=== PATIENT | female | born 1990 | race African-American/Black ===

== ENCOUNTER 2016-06-16 11:37 | Emergency (ER) | payer SELFPAY ==
[2016-06-16 12:27] VITALS: BP 130/72
--- NOTE | 2016-06-16 12:53 | EDM.PDOC ---
ED HPI Trauma - General Chief Complaint: Lower Extremity Injury/Pain Stated Complaint: RT LEG HURTS Time Seen by Provider: 06/16/16 12:06 Source: Reports: Patient History Limitations: Reports: No limitations - History of Present Illness INITIAL COMMENTS - FREE TEXT/NARRATIVE: Presents reporting right knee and leg pain. The patient states that yesterday she slipped on a sheet of ice and fell onto her right lateral leg. Since that time she has had pain along the right lateral leg but particularly with swelling on her lateral knee. No lesion and denies any other injuries. She has been walking on her leg. Allergies/ADRs: Allergies No Known Allergies Allergy (Verified 06/16/16 12:23) Home Medications: Ambulatory Orders . 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 Trauma Exam - Physical Exam Exam: See Below Exam Limited By: No limitations General Appearance: Reports: alert, no apparent distress Head: Reports: atraumatic, normocephalic Ears: Reports: normal external exam Nose: Reports: normal inspection Throat/Mouth: Reports: Normal inspection Neck: Reports: non-tender Respiratory Exam: Reports: no respiratory distress, lungs clear Cardiovascular: Reports: normal peripheral pulses, regular rate, rhythm, no murmur GI/Abdominal: Reports: soft Extremities: Reports: other (Right knee without erythema, calor, crepitus or deformity. She does have mild swelling superiorly. She does have flexion to about 120 then hesitation due to pain) Neurologic: Reports: no motor/sensory deficits, alert, oriented x 3 Skin: Reports: Normal color, Warm/dry Course - Vital Signs Last Recorded V/S: Last Vital Signs Temp 36.6 C 06/16/16 12:23 Pulse 74 06/16/16 12:23 Resp 16 06/16/16 12:23 BP 130/72 06/16/16 12:23 Pulse Ox 95 06/16/16 12:23 - Orders/Labs/Meds Orders: Active Orders 24 hr Category Date Time Status Knee 3V Rt [CR] Stat Exams 06/16/16 12:38 Ordered Departure - Departure Time of Disposition: 13:12 Disposition: Home, Self-Care 01 Condition: good Clinical Impression: Leg injury Qualifiers: Encounter type: initial encounter Laterality: right Qualified Code(s): S89.91XA - Unspecified injury of right lower leg, initial encounter Referrals: PCP,None [Primary Care Provider] - [facility] [Outside] [facility] [Outside] Forms: ED Department Discharge Additional Instructions: 1. Knee sleeve for compression. Ice 20 minutes every 3-4 hours. Tylenol, Ibuprofen or Aleve as needed for pain. Elevate right leg as much as possible 2. Follow up in primary care. - My Orders Last 24 Hours: My Active Orders 06/16/16 12:38 Knee 3V Rt [CR] Stat - Assessment/Plan Last 24 Hours: My Active Orders 06/16/16 12:38 Knee 3V Rt [CR] Stat
[2016-06-16] MEDS ORDERED: Ketorolac 60 MG/2 ML SDV IM ONE (13:12)
--- NOTE | 2016-06-16 13:22 | CR ---
EXAMINATION: Right knee HISTORY: Pain COMPARISON: None TECHNIQUE: 3 views FINDINGS/IMPRESSION: There is no acute osseous abnormality, dislocation, or fracture. Bone mineraliz ation and joint spaces appear normal. No joint effusion or soft tissue swelling.
== END 2016-06-16 13:41 | disposition home or self-care (01) ==
LOC: MW.ED 11:37
DX: S89.91XA Unspecified injury of right lower leg, initial encounter (principal); W01.0XXA Fall on same level from slipping, tripping and stumbling without subsequent striking against object, initial encounter
CPT/HCPCS: 73562-26-RT; 73562-RT; 99282; 99283

== ENCOUNTER 2016-10-11 16:15 | Emergency (ER) | payer SELFPAY ==
--- NOTE | 2016-10-11 17:20 | EDM.PDOC ---
ED HPI GENERAL MEDICAL PROBLEM - General Chief Complaint: Genitourinary Problem Stated Complaint: FEELING LIGHT HEADED Time Seen by Provider: 10/11/16 16:26 Source of Information: Reports: Patient History Limitations: Reports: No Limitations - History of Present Illness INITIAL COMMENTS - FREE TEXT/NARRATIVE: History of present illness: []Patient is concerned she may be . She took 2 home pregnancies which were positive and states she came off control and is sexually active. Her last menstrual period should have been on September 29 but she has not had any bleeding. She denies any belly pain or vaginal bleeding at this time. Patient really wants to confirm because she cannot believe she is . Is a 3-year-old and a 10-year-old currently has had no complications. Review of systems: As per history of present illness and below otherwise all systems reviewed and negative. Past medical history: As per history of present illness and as reviewed below otherwise noncontributory. Surgical history: As per history of present illness and as reviewed below otherwise noncontributory. Social history: No reported history of drug or alcohol abuse. Family history: As per history of present illness and as reviewed below otherwise noncontributory. Physical exam: General: Well developed, well nourished in NAD HEENT: Atraumatic, normocephalic, pupils reactive, negative for conjunctival pallor or scleral icterus, mucous membranes moist, throat clear, neck supple, nontender, trachea midline. Lungs: Clear to auscultation, breath sounds equal bilaterally, chest nontender. Heart: S1S2, regular, negative for clicks, rubs, or JVD. Abdomen: Soft, nondistended, nontender. No pelvic tenderness or suprapubic tenderness. Negative for masses or hepatosplenomegaly. Negative for costovertebral tenderness. Pelvis: Stable nontender. Genitourinary: Deferred. Rectal: Deferred. Extremities: Atraumatic, negative for cords or calf pain. Neurovascular unremarkable. Neuro: Awake, alert, oriented. Cranial nerves II through XII unremarkable. Cerebellum unremarkable. Motor and sensory unremarkable throughout. Exam nonfocal. Diagnostics: []Urine hCG positive UA negative Therapeutics: [] Impression: [] Plan: []Follow-up women's health clinic Definitive disposition and diagnosis as appropriate pending reevaluation and review of above. - Related Data Allergies Allergy/AdvReac Type Severity Reaction Status Date / Time No Known Allergies Allergy Verified 10/11/16 16:47 Home Meds: Home Meds . 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 History: Reports: None Immunologic History: Reports: None - Infectious Disease History Infectious Disease History: Reports: None Social & Family History - Family History Family Medical History: Noncontributory - Tobacco Use Smoking Status *Q: Never Smoker Second Hand Smoke Exposure: No - Caffeine Use Caffeine Use: Reports: None - Recreational Drug Use Recreational Drug Use: No ED ROS GENERAL - Review of Systems Review Of Systems: See Below ED EXAM - Physical Exam Exam: See Below (CHPI) Course - Vital Signs Last Recorded V/S: Last Vital Signs Temp 36.6 C 10/11/16 16:48 Pulse 90 10/11/16 16:48 Resp 18 10/11/16 16:48 BP 129/63 10/11/16 16:48 Pulse Ox 97 10/11/16 16:48 - Orders/Labs/Meds Labs: Laboratory Tests 10/11/16 10/11/16 Range/Units 16:45 16:45 Urine Color YELLOW Urine Appearance CLEAR Urine pH 6.5 (5.0-8.0) Ur Specific [place] 1.010 (1.001-1.035) Urine Protein NEGATIVE (NEGATIVE) mg/dL Urine Glucose (UA) NEGATIVE (NEGATIVE) mg/dL Urine Ketones NEGATIVE (NEGATIVE) mg/dL Urine Occult Blood NEGATIVE (NEGATIVE) Urine Nitrite NEGATIVE (NEGATIVE) Urine Bilirubin NEGATIVE (NEGATIVE) Urine Urobilinogen 0.2 (<2.0) EU/dL Ur Leukocyte Esterase NEGATIVE (NEGATIVE) Urine RBC NONE SEEN (0-2/HPF) Urine WBC 0-2 (0-5/HPF) Ur Epithelial Cells FEW (NONE-FEW) Urine Bacteria FEW (NEGATIVE) Urine HCG, Qual POSITIVE (NEGATIVE) Departure - Departure Time of Disposition: 17:19 Disposition: Home, Self-Care 01 Condition: Good Clinical Impression: - Discharge Information Forms: ED Department Discharge Additional Instructions: The following information is given to patients seen in the emergency department who are being discharged to home. This information is to outline your options for follow-up care. We provide all patients seen in our emergency department with a follow-up referral. The need for follow-up, as well as the timing and circumstances, are variable depending upon the specifics of your emergency department visit. If you don't have a primary care physician on staff, we will provide you with a referral. We always advise you to contact your personal physician following an emergency department visit to inform them of the circumstance of the visit and for follow-up with them and/or the need for any referrals to a consulting specialist. The emergency department will also refer you to a specialist when appropriate. This referral assures that you have the opportunity for follow-up care with a specialist. All of these measure are taken in an effort to provide you with optimal care, which includes your follow-up. Under all circumstances we always encourage you to contact your private physician who remains a resource for coordinating your care. When calling for follow-up care, please make the office aware that this follow-up is from your recent emergency room visit. If for any reason you are refused follow-up, please contact the [facility] Emergency Department at and asked to speak to the emergency department charge nurse. Follow-up with women's health clinic [facility] - [facility] [address] [place] [id number]
[2016-10-11 17:34] VITALS: BP 129/86
== END 2016-10-11 17:31 | disposition home or self-care (01) ==
LOC: MW.ED 16:15
DX: Z32.01 Encounter for pregnancy test, result positive (principal)
CPT/HCPCS: 81001; 81025; 99282; 99284

== ENCOUNTER 2016-11-21 11:53 | Emergency (ER) | payer SELFPAY ==
[2016-11-21] MEDS ORDERED: Sodium Chloride 0.9% 1,000 ML IV ONE (12:12)
[2016-11-21] MEDS ORDERED: Ondansetron 4 MG/2 ML SDV IVPUSH ONE (12:12)
--- NOTE | 2016-11-21 12:18 | EDM.PDOC ---
ED HPI GENERAL MEDICAL PROBLEM - General Chief Complaint: Gastrointestinal Problem Stated Complaint: HEAD ACKE, SORE THORAT Time Seen by Provider: 11/21/16 11:58 Source of Information: Reports: Patient History Limitations: Reports: No Limitations - History of Present Illness INITIAL COMMENTS - FREE TEXT/NARRATIVE: HISTORY AND PHYSICAL: History of present illness: Patient is a 25-year-old female who presents to the emergency room today with complaints of nausea, vomiting, abdominal cramping, sore throat. Patient reports that over the past 4-5 weeks she has had nausea and vomiting with intermittent dysuria. States she sought out care at [facility] and had a workup. Since that time has not seen anyone for her needs. Patient reports over the past couple days she has had a sore throat and intermittent abdominal cramping which she attributes to her vomiting. She denies any vaginal bleeding or discharge. Patient estimates she is approximately 11 weeks . Unsure of last menstrual period. Review of systems: As per history of present illness and below otherwise all systems reviewed and negative. Past medical history: As per history of present illness and as reviewed below otherwise noncontributory. Surgical history: As per history of present illness and as reviewed below otherwise noncontributory. Social history: No reported history of drug or alcohol abuse. Family history: As per history of present illness and as reviewed below otherwise noncontributory. Physical exam: Gen.: Nontoxic appearing 25-year-old female. Able to speak in full sentences without shortness of breath. Alert and oriented HEENT: Atraumatic, normocephalic, pupils reactive, negative for conjunctival pallor or scleral icterus, mucous membranes moist, throat clear, neck supple, nontender, trachea midline. No lymphadenopathy noted. Lungs: Clear to auscultation, breath sounds equal bilaterally, chest nontender. Heart: S1S2, regular rate and rhythm Abdomen: Soft, nondistended, nontender. Negative for masses or hepatosplenomegaly. Negative for costovertebral tenderness. Pelvis: Stable nontender. Genitourinary: Deferred. Rectal: Deferred. Extremities: Atraumatic, negative for cords or calf pain. Neurovascular unremarkable. Neuro: Awake, alert, oriented. Cranial nerves II through XII unremarkable. Cerebellum unremarkable. Motor and sensory unremarkable throughout. Exam nonfocal. Patient received her IV fluids and Zofran reports that she does feel somewhat better. Reviewed her lab results and ultrasound with the patient. Ultrasound shows an intrauterine measuring about 13 weeks. Discussed with patient that she needs to establish care with HOUSING LIAISON for furthering her care. Symptoms are more than likely viral at this time. Recommended that she follow-up in the next 1-2 days. Get plenty of rest and stay hydrated with fluids. Patient voices understanding and is agreeable with plan of care. Denies any further questions at this time. Diagnostics: CBC, CMP, UA, HCT Quant, transvaginal ultrasound Therapeutics: IV fluid and Zofran Impression: Viral Illness Nausea/vomiting with Plan: 1. Zofran ODT as needed for nausea. Please start a vitamin. Get plenty of rest and stay hydrated. To minimize heartburn symptoms, please try small more frequent meals and avoid spicy foods. 2. Establish care with an HOUSING LIAISON either at [facility] or [facility]. 3. Follow-up in the next 1-2 days as we discussed. Return to the ED as needed as discussed Definitive disposition and diagnosis as appropriate pending reevaluation and review of above. 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: Musculoskeletal History: Reports: None Neurological History: Reports: None Psychiatric History: Reports: None Endocrine/Metabolic History: Reports: None Hematologic History: Reports: None Immunologic History: Reports: None Dermatologic History: Reports: None - Infectious Disease History Infectious Disease History: Reports: None Social & Family History - Family History Family Medical History: Noncontributory - Tobacco Use Smoking Status *Q: Never Smoker Second Hand Smoke Exposure: No - Caffeine Use Caffeine Use: Reports: Soda - Recreational Drug Use Recreational Drug Use: No ED ROS GENERAL - Review of Systems Review Of Systems: ROS reveals no pertinent complaints other than HPI. ED EXAM - Physical Exam Exam: See Below (See dictation) Course - Vital Signs Last Recorded V/S: Last Vital Signs Temp 36.1 C 11/21/16 12:03 Pulse 107 H 11/21/16 12:03 Resp 18 11/21/16 12:03 BP 145/73 H 11/21/16 12:03 Pulse Ox 98 11/21/16 12:03 - Orders/Labs/Meds Orders: Active Orders 24 hr Category Date Time Status OB Transvaginal [US] Stat Exams 11/21/16 12:12 Taken CULTURE STREP A CONFIRMATION [RM] Stat Lab 11/21/16 12:35 Results STREP SCRN A RAPID W CULT CONF [RM] Stat Lab 11/21/16 12:35 Results Labs: Laboratory Tests 11/21/16 11/21/16 11/21/16 Range/Units 12:24 12:24 12:24 WBC 8.91 (4.0-11.0) K/uL RBC 3.85 L (4.30-5.90) M/uL Hgb 11.1 L (12.0-16.0) g/dL Hct 33.7 L (36.0-46.0) % MCV 87.5 (80.0-98.0) fL MCH 28.8 (27.0-32.0) pg MCHC 32.9 (31.0-37.0) g/dL RDW Std Deviation 37.4 (28.0-62.0) fl RDW Coeff of Js 12 (11.0-15.0) % Plt Count 232 (150-400) K/uL MPV 9.10 (7.40-12.00) fL Neut % (Auto) 80.4 H (48.0-80.0) % Lymph % (Auto) 14.0 L (16.0-40.0) % [place] % (Auto) 5.1 (0.0-15.0) % Eos % (Auto) 0.4 (0.0-7.0) % Baso % (Auto) 0.1 (0.0-1.5) % Neut # (Auto) 7.2 H (1.4-5.7) K/uL Lymph # (Auto) 1.3 (0.6-2.4) K/uL [place] # (Auto) 0.5 (0.0-0.8) K/uL Eos # (Auto) 0.0 (0.0-0.7) K/uL Baso # (Auto) 0.0 (0.0-0.1) K/uL Nucleated RBC % 0.0 /100WBC Nucleated RBCs # 0 K/uL Sodium 134 L (136-146) mmol/L Potassium 3.7 (3.5-5.1) mmol/L Chloride 105 (98-110) mmol/L Carbon Dioxide 20 L (21-31) mmol/L BUN 7 (6.0-23.0) mg/dL Creatinine 0.6 (0.6-1.5) mg/dL Est Cr Clr Drug Dosing 114.35 mL/min Estimated GFR (MDRD) > 60.0 ml/min Glucose 139 H (60-110) mg/dL Calcium 9.6 (8.8-10.8) mg/dL Total Bilirubin 0.6 (0.1-1.5) mg/dL AST 11 (5-40) IU/L ALT 10 (8-54) IU/L Alkaline Phosphatase 55 (40-150) Total Protein 7.8 (6.0-8.0) g/dL Albumin 3.8 (3.5-5.0) g/dL Globulin 4.0 H (2.0-3.5) g/dL Albumin/Globulin Ratio 1.0 L (1.3-2.8) HCG, Quant mIU/mL Urine Color Urine Appearance Urine pH (5.0-8.0) Ur Specific [place] (1.001-1.035) Urine Protein (NEGATIVE) mg/dL Urine Glucose (UA) (NEGATIVE) mg/dL Urine Ketones (NEGATIVE) mg/dL Urine Occult Blood (NEGATIVE) Urine Nitrite (NEGATIVE) Urine Bilirubin (NEGATIVE) Urine Urobilinogen (<2.0) EU/dL Ur Leukocyte Esterase (NEGATIVE) Urine RBC (0-2/HPF) Urine WBC (0-5/HPF) Ur Epithelial Cells (NONE-FEW) Urine Bacteria (NEGATIVE) Blood Type O POSITIVE 11/21/16 11/21/16 Range/Units 12:24 12:40 WBC (4.0-11.0) K/uL RBC (4.30-5.90) M/uL Hgb (12.0-16.0) g/dL Hct (36.0-46.0) % MCV (80.0-98.0) fL MCH (27.0-32.0) pg MCHC (31.0-37.0) g/dL RDW Std Deviation (28.0-62.0) fl RDW Coeff of Js (11.0-15.0) % Plt Count (150-400) K/uL MPV (7.40-12.00) fL Neut % (Auto) (48.0-80.0) % Lymph % (Auto) (16.0-40.0) % [place] % (Auto) (0.0-15.0) % Eos % (Auto) (0.0-7.0) % Baso % (Auto) (0.0-1.5) % Neut # (Auto) (1.4-5.7) K/uL Lymph # (Auto) (0.6-2.4) K/uL [place] # (Auto) (0.0-0.8) K/uL Eos # (Auto) (0.0-0.7) K/uL Baso # (Auto) (0.0-0.1) K/uL Nucleated RBC % /100WBC Nucleated RBCs # K/uL Sodium (136-146) mmol/L Potassium (3.5-5.1) mmol/L Chloride (98-110) mmol/L Carbon Dioxide (21-31) mmol/L BUN (6.0-23.0) mg/dL Creatinine (0.6-1.5) mg/dL Est Cr Clr Drug Dosing mL/min Estimated GFR (MDRD) ml/min Glucose (60-110) mg/dL Calcium (8.8-10.8) mg/dL Total Bilirubin (0.1-1.5) mg/dL AST (5-40) IU/L ALT (8-54) IU/L Alkaline Phosphatase (40-150) Total Protein (6.0-8.0) g/dL Albumin (3.5-5.0) g/dL Globulin (2.0-3.5) g/dL Albumin/Globulin Ratio (1.3-2.8) HCG, Quant 42672.4 mIU/mL Urine Color YELLOW Urine Appearance CLEAR Urine pH 6.5 (5.0-8.0) Ur Specific [place] 1.015 (1.001-1.035) Urine Protein NEGATIVE (NEGATIVE) mg/dL Urine Glucose (UA) NEGATIVE (NEGATIVE) mg/dL Urine Ketones NEGATIVE (NEGATIVE) mg/dL Urine Occult Blood NEGATIVE (NEGATIVE) Urine Nitrite NEGATIVE (NEGATIVE) Urine Bilirubin NEGATIVE (NEGATIVE) Urine Urobilinogen 0.2 (<2.0) EU/dL Ur Leukocyte Esterase NEGATIVE (NEGATIVE) Urine RBC 0-3 (0-2/HPF) Urine WBC 0-3 (0-5/HPF) Ur Epithelial Cells FEW (NONE-FEW) Urine Bacteria FEW (NEGATIVE) Blood Type Meds: Medications Discontinued Medications Generic Name Dose Route Start Last Admin Trade Name Freq PRN Reason Stop Dose Admin Sodium Chloride 1,000 mls @ 999 mls/hr 11/21/16 12:12 11/21/16 12:30 Normal Saline IV 11/21/16 13:12 999 mls/hr STAT ONE Administration Ondansetron HCl 4 mg 11/21/16 12:12 11/21/16 12:29 Zofran IVPUSH 11/21/16 12:13 4 mg ONETIME ONE Administration Departure - Departure Time of Disposition: 14:04 Disposition: Home, Self-Care 01 Clinical Impression: Viral illness, Nausea/vomiting in - Discharge Information Referrals: PCP,None [Primary Care Provider] - Forms: ED Department Discharge Additional Instructions: My general discharge The following information is given to patients seen in the emergency department who are being discharged to home. This information is to outline your options for follow-up care. We provide all patients seen in our emergency department with a follow-up referral. The need for follow-up, as well as the timing and circumstances, are variable depending upon the specifics of your emergency department visit. If you don't have a primary care physician on staff, we will provide you with a referral. We always advise you to contact your personal physician following an emergency department visit to inform them of the circumstance of the visit and for follow-up with them and/or the need for any referrals to a consulting specialist. The emergency department will also refer you to a specialist when appropriate. This referral assures that you have the opportunity for follow-up care with a specialist. All of these measure are taken in an effort to provide you with optimal care, which includes your follow-up. Under all circumstances we always encourage you to contact your private physician who remains a resource for coordinating your care. When calling for follow-up care, please make the office aware that this follow-up is from your recent emergency room visit. If for any reason you are refused follow-up, please contact the [facility] Emergency Department at and asked to speak to the emergency department charge nurse. [facility] [address] [place] [id number] [facility] Primary [facility] - Women's Health [address] [place] [id number] 1. Zofran ODT as needed for nausea. Restart a vitamin. Get plenty of rest and stay hydrated. To minimize heartburn symptoms, please try small more frequent meals and avoid spicy foods. 2. Establish care with an HOUSING LIAISON either at [facility] or [facility]. 3. Follow-up in the next 1-2 days as we discussed. Return to the ED as needed as discussed - My Orders Last 24 Hours: My Active Orders 11/21/16 12:12 OB Transvaginal [US] Stat 11/21/16 12:35 CULTURE STREP A CONFIRMATION [RM] Stat STREP SCRN A RAPID W CULT CONF [] Stat - Assessment/Plan Last 24 Hours: My Active Orders 11/21/16 12:12 OB Transvaginal [US] Stat 11/21/16 12:35 CULTURE STREP A CONFIRMATION [RM] Stat STREP SCRN A RAPID W CULT CONF [] Stat
[2016-11-21 12:58] LABS: CHLORIDE,CL 105 mmol/L (98-110); SODIUM,NA 134 mmol/L (136-146)
[2016-11-21 14:32] VITALS: BP 128/67
--- NOTE | 2016-11-23 17:26 | US ---
EXAM DATE: 11/21/16 PATIENT'S AGE: 25 Patient: JEISON MERIDA Facility: [place], [place] Site . Site : 1990 Study: US OB Pelvis [id number]/23/2017 1:20:12 PM Ordering Physician: Doctor Gilbert Final Report: HISTORY: with cramping. TECHNIQUE: Transabdominal and transvaginal pelvic ultrasound, obstetric. FINDINGS: There is a living single intrauterine gestation with calculated gestational age based on ultrasound measurements of 13 weeks 4 days. Heart rate 155 beats per minute. - Measurements: Biparietal diameter 2.3 cm 13 weeks, 6 days. Head circumference 8.4 cm 13 weeks 5 days. Abdominal circumference 6.9 cm 13 weeks 4 days. Femur length 1.3 cm 13 weeks, 6 days. - Cervical length is within normal limits. Cervix appears closed. Amniotic fluid volume is subjectively normal. The ovaries are unremarkable. No complications seen. IMPRESSION: 1. Single living intrauterine gestation at 13 weeks, 4 days. 2. No complications. Dictated by Nelson Ontiveros MD @ 11/21/2016 1:46:37 PM Dictated by: Nelson Ontiveros MD @ 11/21/2016 13:46:45 (Electronic Signature) Report Signed by Proxy. JUSTINE
== END 2016-11-21 14:19 | disposition home or self-care (01) ==
LOC: MW.ED 11:53
DX: O21.9 Vomiting of pregnancy, unspecified (principal); B34.9 Viral infection, unspecified; Z3A.13 13 weeks gestation of pregnancy
CPT/HCPCS: 36415; 76817; 80053; 81001; 84702; 85025; 86900; 86901; 87081; 87880; 96361; 96374; 99284; J2405; J7040; 99283

== ENCOUNTER 2016-12-08 21:38 | Emergency (ER) | payer SELFPAY ==
--- NOTE | 2016-12-08 22:40 | EDM.PDOC ---
ED HPI GENERAL MEDICAL PROBLEM - General Chief Complaint: [employer] Problem Stated Complaint: SIDE AND STOMACH PAIN Time Seen by Provider: 12/08/16 22:13 Source of Information: Reports: Patient History Limitations: Reports: No Limitations - History of Present Illness INITIAL COMMENTS - FREE TEXT/NARRATIVE: HISTORY AND PHYSICAL: History of present illness: [26-year-old female to now presents emergency department 16 weeks by prior ultrasound complaining of vaginal spotting and some left- sided crampy abdominal pain. Patient still fevers chills sweats or shaking chills. She has normal bladder habits. She reports some recent loose stool. Pain is not worse with movement. She has very mild vaginal spotting but no vaginal discharge or odor or discomfort otherwise. Patient thinks she is Rh+ but she has not had her blood type evaluated at this hospital previously. She is seen by in the [facility] for care.] Review of systems: As per history of present illness and below otherwise all systems reviewed and negative. Past medical history: As per history of present illness and as reviewed below otherwise noncontributory. Surgical history: As per history of present illness and as reviewed below otherwise noncontributory. Social history: No reported history of drug or alcohol abuse. Family history: As per history of present illness and as reviewed below otherwise noncontributory. Physical exam: Well-appearing 26-year-old female no acute distress no pallor or tachycardia uterine distention consistent with dates. No focal abdominal or pelvic tenderness. No CVA tenderness HEENT: Atraumatic, normocephalic, pupils reactive, negative for conjunctival pallor or scleral icterus, mucous membranes moist, throat clear, neck supple, nontender, trachea midline. Lungs: Clear to auscultation, breath sounds equal bilaterally, chest nontender. Heart: S1S2, regular, negative for clicks, rubs, or JVD. Abdomen: Soft, nondistended, nontender. Negative for masses or hepatosplenomegaly. Negative for costovertebral tenderness. Pelvis: Stable nontender. Genitourinary: Deferred. Rectal: Deferred. Extremities: Atraumatic, negative for cords or calf pain. Neurovascular unremarkable. Neuro: Awake, alert, oriented. Cranial nerves grossly unremarkable. Cerebellum unremarkable. Motor and sensory unremarkable throughout. Exam nonfocal. Diagnostics: OB pelvic ultrasound pending as well as urinalysis type and Rh. Therapeutics: [] Impression: [] Plan: [[16 week gestation with spotting. Ultrasound pending to evaluate current viability. Patient with no discharge of the mild spotting. Rh pending as well as H&H. Will check urine and follow clinically, correlate with radiographic results.]] Ultrasound with positive heart activity no subchorionic hemorrhage or evidence of intrauterine abnormality per computer support technician. Patient stable on multiple reevaluation she is smiling comfortable appearing and ambulating without any apparent discomfort. She is where her hemoglobin was 10+ and follow- up with her doctor for reevaluation and further workup of this anemia and treatment as needed. Patient's blood type was O+. She is aware to follow-up with her doctor in the morning and observe strict pelvic rest. Definitive disposition and diagnosis as appropriate pending reevaluation and review of above. Lower Abdominal Pain Score (Numeric/FACES): 7 - Related Data Allergies Allergy/AdvReac Type Severity Reaction Status Date / Time No Known Allergies Allergy Verified 12/08/16 23:13 Home Meds: Home Meds Pnv No.95/Ferrous Fum/Folic AC [ Multivitamin Tablet] 1 tab PO DAILY [History] Past Medical History - Past Health History Medical/Surgical History: Denies Medical/Surgical History HEENT History: Reports: None Cardiovascular History: Reports: None Respiratory History: Reports: None Gastrointestinal History: Reports: None Genitourinary History: Reports: None [employer] History: Reports: Musculoskeletal History: Reports: None Neurological History: Reports: None Psychiatric History: Reports: None Endocrine/Metabolic History: Reports: None Hematologic History: Reports: None Immunologic History: Reports: None Dermatologic History: Reports: None - Infectious Disease History Infectious Disease History: Reports: None Social & Family History - Family History Family Medical History: Noncontributory - Tobacco Use Smoking Status *Q: Never Smoker Second Hand Smoke Exposure: No - Caffeine Use Caffeine Use: Reports: Soda - Recreational Drug Use Recreational Drug Use: No ED ROS GENERAL - Review of Systems Review Of Systems: See Below (History of present illness) ED EXAM - Physical Exam Exam: See Below (History of present illness) Course - Vital Signs Last Recorded V/S: Last Vital Signs Temp 36.5 C 12/09/16 00:50 Pulse 77 12/09/16 00:50 Resp 18 12/09/16 00:50 BP 125/69 12/09/16 00:50 Pulse Ox 98 12/09/16 00:50 - Orders/Labs/Meds Orders: Active Orders 24 hr Category Date Time Status OB Ltd 1 or More Fetus [US] Stat Exams 12/08/16 22:33 Taken Labs: Laboratory Tests 12/08/16 12/08/16 Range/Units 22:51 22:51 Hgb 10.9 L (12.0-16.0) g/dL Hct 32.9 L (36.0-46.0) % Blood Type O POSITIVE Antibody Screen NEGATIVE Departure - Departure Time of Disposition: 00:34 Disposition: Home, Self-Care 01 Condition: Good Clinical Impression: Vaginal bleeding in , Vaginal bleeding in patient at less than 20 weeks gestation, Anemia - Discharge Information Instructions: Vaginal Bleeding During , Second Trimester Referrals: PCP,None [Primary Care Provider] - Forms: ED Department Discharge Additional Instructions: You have spotting or very mild vaginal bleeding at 16 weeks gestation in your . Your ultrasound results were reassuring and showed no intrauterine blood collection and your fetus has normal heart activity at this time. Bleeding in is always concerning and it is appropriate to follow-up with your [employer] [facility] doctor in the morning. Observe strict pelvic rest meaning don' t be sexually active or do anything vigorous. Rest and drink plenty of fluids. The aware that you're also anemic with a hemoglobin of 10.9. This hemoglobin is mildly low but does not require transfusion or any other intervention at this time. You are correct that your blood type is O+ and this does not require any further intervention at the time of bleeding during . Follow-up with your doctor in the morning and Return immediately for new severe or worsening symptoms - My Orders Last 24 Hours: My Active Orders 12/08/16 22:33 OB Ltd 1 or More Fetus [US] Stat - Assessment/Plan Last 24 Hours: My Active Orders 12/08/16 22:33 OB Ltd 1 or More Fetus [US] Stat
[2016-12-09 03:01] VITALS: BP 125/69
--- NOTE | 2016-12-09 11:21 | US ---
EXAM DATE: 12/08/16 PATIENT'S AGE: 26 Patient: JEISON MERIDA Facility: [place], [place] Site . Site : 1990 Study: US OB Pelvis [id number]/08/2016 11:52:52 PM Ordering Physician: Aiden Pineda Final Report: INDICATION: Low pelvic pain TECHNIQUE: Limited transabdominal obstetric ultrasound. COMPARISON: 11/21/16 FINDINGS: A single live intrauterine gestation is seen in cephalic presentation. Estimated gestational age based on biparietal diameter, head circumference, abdominal circumference and femur length is 16 weeks and 4 days. There is cardiac activity with a heart rate of the 135 BPM. Evaluation of anatomy is very limited. The placenta is posterior. The cervix is not well seen. Amniotic fluid volume appears within normal limits, however an KARINA is not measured. Neither ovary is visualized. No significant free fluid is seen. IMPRESSION: A single live intrauterine gestation at 16 weeks and 4 days by sonographic measurements. Very limited evaluation of anatomy. A full anatomical survey is recommended at 18-20 weeks. Dictated by Wagner Hazel MD @ 12/08/2016 11:57:46 PM Dictated by: Wagner Hazel MD @ 12/08/2016 23:57:52 (Electronic Signature) Report Signed by Proxy. JUSTINE
== END 2016-12-09 00:50 | disposition home or self-care (01) ==
LOC: MW.ED 21:38
DX: O20.9 Hemorrhage in early pregnancy, unspecified (principal); Z3A.16 16 weeks gestation of pregnancy; O99.012 Anemia complicating pregnancy, second trimester
CPT/HCPCS: 36415; 76815; 76815-26; 85014; 85018; 86850; 86900; 86901; 99282; 99284-25